=== PATIENT | female | born 1960 | race Caucasian/White ===

== ENCOUNTER 2022-06-21 23:34 | Emergency (ER) | payer OTHER ==
[~2022-06-21] VITALS: Ht 170.2 cm; Wt 65.8 kg
[~2022-06-21 23:34] MED LIST: HYOS.125 SL; MOXI400 PO; PANT20 PO; RXHYOS.125 PO
== END 2022-06-22 01:55 | disposition home or self-care (01) ==
LOC: ER 23:34
DX: S43.102A Unspecified dislocation of left acromioclavicular joint, initial encounter (principal); W19.XXXA Unspecified fall, initial encounter
CPT/HCPCS: 36415; 73030; 96372-59; 96374; 96375; 96376; 99283-25; A9270; J1170; J1885; J2405; J3010

== ENCOUNTER 2023-02-19 07:02 | Day surgery (SDC) | payer OTHER ==
[~2023-02-19] VITALS: Ht 160 cm; Wt 73.9 kg
--- NOTE | 2023-02-19 09:01 | NUR ---
02/19/23 0901 Jose Raul Espino 0.15ML OF EPI 1MG/ML ADDED TO 30ML OF ROPIVICAINE 0.5% TO CREATE A LOCAL SOLUTION OF ROPIVICAINE 0.5% WITH EPI 1:200,000. 30MLS USED.
[2023-02-19 11:01] VITALS: BP 122/65
--- NOTE | 2023-02-19 11:31 | NUR ---
02/19/23 1131 Epifanio Dominguez iv removed intact. site wnl.
== END 2023-02-19 11:30 | disposition home or self-care (01) ==
LOC: ORSCSDS 07:02
PROVIDERS: Podiatrist Foot & Ankle Surgery
PROC: 0QSQ04Z Reposition Right Toe Phalanx with Internal Fixation Device, Open Approach (ICD-10-PCS; principal; 2023-02-19 08:45)
PROC: 0SGK04Z Fusion of Right Tarsometatarsal Joint with Internal Fixation Device, Open Approach (ICD-10-PCS; principal; 2023-02-19 08:45)
DX: M21.611 Bunion of right foot (principal); J44.9 Chronic obstructive pulmonary disease, unspecified
CPT/HCPCS: A9270; C1713; J0171; J0690; J1100; J1885; J2250; J2370; J2405; J2704; J2795; J3010; J7120

== ENCOUNTER 2025-04-06 11:57 | Emergency (ER) | payer OTHER ==
[~2025-04-06] VITALS: Ht 162.6 cm; Wt 68.0 kg
[2025-04-06] MEDS ORDERED: Morphine Sulfate 4 MG/1 ML Injection IV ONE (17:40)
[2025-04-06] MEDS ORDERED: Ondansetron HCl 2 MG / ML 2ML Vial IV ONE (17:40)
[2025-04-06] MEDS ORDERED: Ketorolac Tromethamine 30mg Vial IV ONE (17:45)
[2025-04-06 18:17] VITALS: BP 139/71
[2025-04-06] MEDS ORDERED: IBUP600 PO (19:20)
[2025-04-06] MEDS ORDERED: Cyclobenzaprine5 MG PO (19:20)
[2025-04-06] MEDS ORDERED: RX Prepack 6 Tabs Oxycodone 5mg UD ONE (19:20)
== END 2025-04-06 19:34 | disposition home or self-care (01) ==
LOC: ER 11:57
DX: M54.50 Low back pain, unspecified (principal); Z88.5 Allergy status to narcotic agent
CPT/HCPCS: 72131; 93005; 93010; 96374; 96375; 99284-25; A9270; J1885; J2270; J2405

== ENCOUNTER 2025-05-28 12:23 | Day surgery (SDC) | payer OTHER ==
[2025-05-28] VITALS (12 sets, daily range): BP systolic 139–169; BP diastolic 69–89
[~2025-05-28] VITALS: Ht 160 cm; Wt 69.5 kg
[~2025-05-28 12:23] MED LIST changes: +ALBU90OI INH; +Cyclobenzaprine5 MG PO; +IBUP600 PO; +OXYC5 PO
--- NOTE | 2025-05-28 13:18 | NUR ---
PT HAS 2MM ABRASION BELOW NAVAL SHE STATES IS "PROBABLY A BUG BITE".
[2025-05-28] MEDS ORDERED: Bupivacaine 0.25% Epi 1:200000 30 ML Vial ONE (13:34)
[2025-05-28] MEDS ORDERED: FentaNYL Citrate 50 MCG/ML 2 ML Injection ONE ×3 (13:44→15:17)
[2025-05-28] MEDS ORDERED: Dexamethasone Sod Phos 10 MG/ML 1ML VIAL ONE (13:51)
[2025-05-28] MEDS ORDERED: Ondansetron HCl 2 MG / ML 2ML Vial ONE (13:51)
[2025-05-28] MEDS ORDERED: Sugammadex Sodium 200 MG/2ML SDV (100 MG/ML) ONE (14:22)
[2025-05-28] MEDS ORDERED: Rocuronium Bromide 10 MG/ML 5ML Injection IV ONE (14:22)
[2025-05-28] MEDS ORDERED: Ketorolac Tromethamine 30mg Vial ONE (14:22)
[2025-05-28] MEDS ORDERED: OxyCODONE 5 mg/Acetamin 325 mg TABLET PO PRN (15:15)
[2025-05-28] MEDS ORDERED: FentaNYL Citrate 50 MCG/ML 2 ML Injection IV PRN (15:15)
[2025-05-28] MEDS ORDERED: Albuterol 2.5 MG/3 ML VIAL INH PRN (15:15)
[2025-05-28] MEDS ORDERED: HYDROmorphone HCl/Pf 1MG SYR IV PRN ×2 (15:15→15:20)
[2025-05-28] MEDS ORDERED: Ondansetron HCl 2 MG / ML 2ML Vial IV PRN (15:15)
[2025-05-28] MEDS ORDERED: FENTANYL CITRATE 50 MCG/ML IV PRN (15:20)
== END 2025-05-28 23:00 | disposition home or self-care (01) ==
LOC: ORSCMMR 12:23 → ORD 14:15 → ORSCMMR 23:00
DX: D27.0 Benign neoplasm of right ovary (principal); D27.1 Benign neoplasm of left ovary; R10.2 Pelvic and perineal pain
CPT/HCPCS: 88305; A9270; J1100; J1885; J2405; J2704; J3010; J7120

== ENCOUNTER 2025-05-30 15:28 | Emergency (ER) | payer OTHER ==
[~2025-05-30] VITALS: Ht 162.6 cm; Wt 69.0 kg
[2025-05-30] MEDS ORDERED: Ketorolac Tromethamine 30mg Vial IV ONE ×2 (16:45→20:10)
[2025-05-30 17:25] LABS: BASOPHILS ABSOLUTE AUTO 0.06 K/mm3 (0.00-0.23); BASOPHILS PERCENT AUTO 1 % (0-2); EOSINOPHILS ABSOLUTE AUTO 0.11 K/mm3 (0.00-0.68); EOSINOPHILS PERCENT AUTO 1 % (0-6); Hematocrit 36.5 % (33.0-51.0); Hemoglobin 12.2 g/dL (11.5-16.0); IMMATURE GRAN ABSOLUTE AUTO 0.03 K/mm3 (0.00-0.10); IMMATURE GRAN PERCENT AUTO 0 % (0-1); LYMPHOCYTES ABSOLUTE AUTO 2.20 K/mm3 (0.84-5.20); LYMPHOCYTES PERCENT AUTO 28 % (21-46); MONOCYTES ABSOLUTE AUTO 0.66 K/mm3 (0.16-1.47); MONOCYTES PERCENT AUTO 8 % (4-13); Mean Corpuscular HGB Conc 33.4 g/dL (31.5-36.5); Mean Corpuscular Volume 95 fL (80-100); NEUTROPHILS ABSOLUTE AUTO 4.86 K/mm3 (1.96-9.15); NEUTROPHILS PERCENT AUTO 61 % (41-73); NRBC ABSOLUTE 0.00 K/mm3 (0.00-0.02); NRBC Auto 0.0 /100 WBC (0.0-0.2); Platelet Count 206 K/mm3 (150-400); RDW Coefficient Variation 13.2 % (11.7-14.2); RDW Standard Deviation 45.8 fL (35.1-46.3)
[2025-05-30 17:46] LABS: Alanine Aminotransfer (ALT/SGP 236.0 U/L (12-78); Albumin, Blood 3.6 g/dL (3.4-5.0); Albumin/Globulin Ratio 1.3 (0.8-1.8); Anion Gap 6.0 mmol/L (3-11); Aspartate Aminotrans (AST/SGOT 404.0 U/L (12-37); Bilirubin, Total 0.5 mg/dL (0.1-1.0); Blood Urea Nitrogen 25.0 mg/dL (8-24); CO2, Blood 29.0 mmol/L (21-32); Calcium, Blood 8.7 mg/dL (8.5-10.1); Chloride, Blood 105.0 mmol/L (98-108); Creatinine, Blood 0.68 mg/dL (0.40-1.00); Globulin, Blood 2.8 g/dL (2.2-4.0); Glucose, Blood 104.0 mg/dL (70-99); Potassium, Blood 4.0 mmol/L (3.5-5.5); Sodium, Blood 136.0 mmol/L (136-145); Total Protein, Blood 6.4 g/dL (6.4-8.2)
[2025-05-30 19:34] VITALS: BP 131/69
[2025-05-30] MEDS ORDERED: FentaNYL Citrate 50 MCG/ML 2 ML Injection IV ONE ×2 (19:35→20:10)
== END 2025-05-30 20:39 ==
LOC: ER 15:28
PROVIDERS: Physician Assistant
DX: G89.18 Other acute postprocedural pain (principal); Z90.722 Acquired absence of ovaries, bilateral; Z88.2 Allergy status to sulfonamides; Z79.899 Other long term (current) drug therapy; Z59.89 Other problems related to housing and economic circumstances
CPT/HCPCS: 74177; 80053; 85025; 96374-59; 96375; 96376; 99283-25; J1885; J3010; Q9967